=== PATIENT | male | born 1995 | race African-American/Black ===

== ENCOUNTER 2017-04-17 13:42 | Emergency (ER) | payer SELFPAY ==
[2017-04-17] MEDS ORDERED: LIDOCAINE 4%/TETRACAINE 0.5%/EPI 0.18% 5 ML TOPICAL SOLN TOP ONE (14:33)
--- NOTE | 2017-04-17 14:33 | ER Document Report ---
HPI - HPI Patient complains to provider of: fall, lip laceration Pain Level: 4 Context: patient is a 21 year old male who presents to the ED complaining of lip lac after fall today at home. he was in the bathroom and slipped hitting his chin on the toilet. but landing on his right shoulder. his CC today is his chin laceration. no LOc, h/a, dizzyness, n/v. mild shoulder pain but without motor or sensory dysfunction pack a day smoker Past Medical History - Social History Smoking Status: Current Every Day Smoker Chew tobacco use (# tins/day): No Frequency of alcohol use: Rare Family History: Reviewed & Not Pertinent Patient has suicidal ideation: No Patient has homicidal ideation: No Renal/ Medical History: Denies: Hx Peritoneal Dialysis Surgical Hx: Negative - Immunizations Hx Diphtheria, Pertussis, Tetanus Vaccination: Yes Vertical Provider Document - CONSTITUTIONAL Agree With Documented VS: Yes Exam Limitations: No Limitations General Appearance: WD/WN, No Apparent Distress - INFECTION CONTROL TRAVEL OUTSIDE OF THE [place] IN LAST 30 DAYS: No - NECK Neck: Normal Inspection, Other - Full ROM, no spinous process tenderness, no paraspinal muscle tenderness - RESPIRATORY Respiratory: Breath Sounds Normal, No Respiratory Distress, Chest Non-Tender O2 Sat by Pulse Oximetry: 97 - CARDIOVASCULAR Cardiovascular: Regular Rate, Regular Rhythm, No Murmur - BACK Back: Normal Inspection Notes: No evidence of paraspinous muscle tenderness or spinous process tenderness, step offs or deformities - MUSCULOSKELETAL/EXTREMETIES Musculoskeletal/Extremeties: MAEW, FROM, Non-Tender, No Edema. negative: Eccymosis - NEURO Level of Consciousness: Awake, Alert, Appropriate Motor/Sensory: No Motor Deficit, No Sensory Deficit - DERM Integumentary: Laceration - 1 cm lacerationleft lateral lower lip with minimal involment into the lip border. bleeding controlled Course - Re-evaluation Re-evalutation: 04/17/17 16:45 Is a 21-year-old male who suffered from a mechanical fall earlier today. Laceration was closed with 2 interrupted 6-0 nylon sutures after wound was cleaned. Otherwise patient discomfort in the shoulder is not with any concern for fracture dislocation with full range of motion is intact motor and sensory function. Will discharge patient home with instructions to follow-up in 5 days with primary care - Vital Signs Vital signs: Temp Pulse Resp BP Pulse Ox 98.4 F 86 18 143/81 H 97 04/17/17 14:00 04/17/17 14:00 04/17/17 14:00 04/17/17 14:00 04/17/17 14:00 Procedures - Laceration/Wound Repair Face Wound length (cm): 1 Wound's Depth, Shape: Linear Laceration pre-procedure: Sterile PPE donned, Chloraprep applied, Sterile drapes applied Anesthetic type: Other - LET Wound explored: Clean, No foreign body removed Irrigated w/ Saline (mLs): 15 Wound Debrided: Minimal Wound Repaired With: Sutures Suture Size/Type: 6:0, Nylon Number of Sutures: 2 Layer Closure?: No Post-procedure wound care: Sterile dressing applied Post-procedure NV exam normal: Yes Complications: No Discharge - Discharge Clinical Impression: Laceration, Fall Condition: Good Disposition: HOME, SELF-CARE Instructions: Laceration Care ([facility]), Soap Cleansing ([facility]), Antibiotic Ointment Protection ([facility]) Additional Instructions: Please follow up with your primary care or urgent care (see attached card) for removal of your stitches in 3-5 days. Prescriptions: Ibuprofen [Motrin 800 mg Tablet] 800 mg PO Q8H PRN #30 tab PRN Reason: Forms: Elevated Blood Pressure, Return to Work
[2017-04-17 15:32] VITALS: BP 129/70
[2017-04-17] MEDS ORDERED: IBUPROFEN 800 MG TABLET PO ONE (15:35)
== END 2017-04-17 15:40 | disposition home or self-care (01) ==
LOC: ER 13:42
PROC: 0HQ1XZZ Repair Face Skin, External Approach (ICD-10-PCS; principal; 2017-04-17)
DX: S01.511A Laceration without foreign body of lip, initial encounter (principal); M25.511 Pain in right shoulder; W19.XXXA Unspecified fall, initial encounter; F17.200 Nicotine dependence, unspecified, uncomplicated
CPT/HCPCS: 99283; 12011; J3490

== ENCOUNTER 2017-09-07 12:22 | Emergency (ER) | payer SELFPAY ==
[2017-09-07] MEDS ORDERED: ONDANSETRON 4 MG TAB.RAPDIS SL ONE (12:55)
--- NOTE | 2017-09-07 12:56 | ER Document Report ---
ED Medical Screen (RME) - General Chief Complaint: Abdominal Pain Stated Complaint: STOMACH PAIN Time Seen by Provider: 09/07/17 12:34 Mode of Arrival: Ambulatory Information source: Patient TRAVEL OUTSIDE OF THE [place] IN LAST 30 DAYS: No - HPI Patient complains to provider of: Abdominal pain with nausea and vomiting Notes: 09/07/17 12:55 Patient is a 21-year-old male presenting to the emergency room today complaining of abdominal pain that started 2 weeks ago and is just above the umbilicus, with nausea and vomiting that started yesterday, he denies any sick contacts, no fevers, no urinary symptoms - Related Data Allergies/Adverse Reactions: No Known Allergies Allergy (Verified 09/07/17 12:26) Past Medical History Renal/ Medical History: Denies: Hx Peritoneal Dialysis - Immunizations Hx Diphtheria, Pertussis, Tetanus Vaccination: Yes Physical Exam - Vital signs Vitals: Temp Pulse Resp BP Pulse Ox 97.9 F 60 16 129/78 H 98 09/07/17 12:26 09/07/17 12:26 09/07/17 12:26 09/07/17 12:26 09/07/17 12:26 Course - Vital Signs Vital signs: Temp Pulse Resp BP Pulse Ox 97.9 F 60 16 129/78 H 98 09/07/17 12:26 09/07/17 12:26 09/07/17 12:26 09/07/17 12:26 09/07/17 12:26
[2017-09-07 13:52] LABS: ABSOLUTE EOSINOPHILS # (AUTO) 0.1 10^3/uL (0.0-0.6); ABSOLUTE LYMPHOCYTES (AUTO) 1.1 10^3/uL (0.5-4.7); ABSOLUTE MONOCYTES (AUTO) 0.3 10^3/uL (0.1-1.4); ABSOLUTE NEUT (AUTO) 3.1 10^3/uL (1.7-8.2); BASOPHILS % (AUTO) 0.8 % (0-2); EOSINOPHILS % (AUTO) 2.4 % (0-6); HEMATOCRIT 47.2 % (37.9-51.0); HEMOGLOBIN 15.6 g/dL (13.5-17.0); HGB HCT DIFFERENCE -0.4; LYMPHOCYTES % (AUTO) 23.5 % (13-45); MEAN CORPUSCULAR HEMOGLOBIN 27.4 pg (27.0-33.4); MEAN CORPUSCULAR HGB CONC 33.1 g/dL (32.0-36.0); MEAN CORPUSCULAR VOLUME 83 fl (80-97); MONOCYTES % (AUTO) 7.3 % (3-13); RED CELL DISTRIBUTION WIDTH 13.9 % (11.5-14.0); WHITE BLOOD COUNT 4.7 10^3/uL (4.0-10.5)
[2017-09-07 13:58] LABS: APPEARANCE,URINE CLEAR; BILIRUBIN,URINE NEGATIVE (NEGATIVE); GLUCOSE, URINE NEGATIVE (NEGATIVE); KETONES,URINE NEGATIVE (NEGATIVE); LEUKOCYTE ESTERASE,URINE NEGATIVE (NEGATIVE); NITRITE,URINE NEGATIVE (NEGATIVE); PROTEIN,URINE NEGATIVE (NEGATIVE); URINE SPECIFIC GRAVITY 1.021; UROBILINOGEN,URINE NEGATIVE mg/dL (<2.0)
[2017-09-07 14:09] LABS: ALANINE AMINOTRANSFERASE 34 U/L (21-72); ALBUMIN 4.7 g/dL (3.5-5.0); ALKALINE PHOSPHATASE 39 U/L (38-126); ANION GAP 9 (5-19); ASPARTATE AMINO TRANSFERASE 28 U/L (17-59); BILIRUBIN,DIRECT 0.4 mg/dL (0.0-0.4); BILIRUBIN,TOTAL 0.6 mg/dL (0.2-1.3); BLOOD UREA NITROGEN 16 mg/dL (7-20); CALCIUM 10.5 mg/dL (8.4-10.2); CARBON DIOXIDE 33 mmol/L (22-30); CHLORIDE 103 mmol/L (98-107); CREATININE RESULT 0.88 mg/dL (0.52-1.25); GLUCOSE 84 mg/dL (75-110); LIPASE 62.6 U/L (23-300); SODIUM 145.2 mmol/L (137-145); TOTAL PROTEIN 7.2 g/dL (6.3-8.2)
[2017-09-07 15:17] VITALS: BP 114/90
--- NOTE | 2017-09-07 15:17 | ER Document Report ---
ED GI/ - General Chief Complaint: Abdominal Pain Stated Complaint: STOMACH PAIN Time Seen by Provider: 09/07/17 12:34 Mode of Arrival: Ambulatory Information source: Patient TRAVEL OUTSIDE OF THE [place] IN LAST 30 DAYS: No - HPI Patient complains to provider of: Abdominal pain, Vomiting Timing/Duration: Gradual Quality of pain: Achy Pain Level: 2 Location: Epigastric Associated symptoms: Nausea, Vomiting Exacerbated by: Food Relieved by: Denies Notes: 09/07/17 15:15 09/07/17 12:55 Patient is a 21-year-old male presenting to the emergency room today complaining of abdominal pain that started 2 weeks ago and is just above the umbilicus, with nausea and vomiting that started yesterday, he denies any sick contacts, no fevers, no urinary symptoms - Related Data Allergies/Adverse Reactions: No Known Allergies Allergy (Verified 09/07/17 12:26) Past Medical History - General Information source: Patient - Social History Smoking Status: Current Every Day Smoker Frequency of alcohol use: Occasional Drug Abuse: None Family History: Reviewed & Not Pertinent Renal/ Medical History: Denies: Hx Peritoneal Dialysis - Immunizations Hx Diphtheria, Pertussis, Tetanus Vaccination: Yes Review of Systems - Review of Systems Constitutional: No symptoms reported EENT: No symptoms reported Cardiovascular: No symptoms reported Respiratory: No symptoms reported Gastrointestinal: See HPI Genitourinary: No symptoms reported Male Genitourinary: No symptoms reported Musculoskeletal: No symptoms reported Skin: No symptoms reported Hematologic/Lymphatic: No symptoms reported Neurological/Psychological: No symptoms reported -: Yes All other systems reviewed and negative Physical Exam - Vital signs Vitals: Temp Pulse Resp BP Pulse Ox 97.9 F 60 16 129/78 H 98 09/07/17 12:26 09/07/17 12:26 09/07/17 12:26 09/07/17 12:26 09/07/17 12:26 Interpretation: Normal - General General appearance: Appears well, Alert - HEENT Head: Normocephalic, Atraumatic Eyes: Normal Pupils: PERRL - Respiratory Respiratory status: No respiratory distress Chest status: Nontender Breath sounds: Normal Chest palpation: Normal - Cardiovascular Rhythm: Regular Heart sounds: Normal auscultation Murmur: No - Abdominal Inspection: Normal Distension: No distension Bowel sounds: Normal Tenderness: Tender - Epigastric region Organomegaly: No organomegaly - Back Back: Normal, Nontender - Extremities General upper extremity: Normal inspection, Nontender, Normal color, Normal ROM , Normal temperature General lower extremity: Normal inspection, Nontender, Normal color, Normal ROM , Normal temperature, Normal weight bearing. No: Rose Mary's sign - Neurological Neuro grossly intact: Yes Cognition: Normal Orientation: AAOx4 Baldwin Coma Scale Eye Opening: Spontaneous Jeimy Coma Scale Verbal: Oriented Baldwin Coma Scale Motor: Obeys Commands Jeimy Coma Scale Total: 15 Speech: Normal Motor strength normal: LUE, RUE, LLE, RLE Sensory: Normal - Psychological Associated symptoms: Normal affect, Normal mood - Skin Skin Temperature: Warm Skin Moisture: Dry Skin Color: Normal Course - Re-evaluation Re-evalutation: 09/07/17 15:15 Patient tolerating p.o. intake, labs were discussed with patient at bedside which are unremarkable, patient will be discharged with prescription for Pepcid and Zofran and advised to follow-up with a primary care provider or return if symptoms worsen, patient acknowledges understanding and agreement with this plan - Vital Signs Vital signs: Temp Pulse Resp BP Pulse Ox 97.9 F 60 16 129/78 H 98 09/07/17 12:26 09/07/17 12:26 09/07/17 12:26 09/07/17 12:26 09/07/17 12:26 - Laboratory Result Diagrams: 09/07/17 13:26 09/07/17 13:26 Laboratory results interpreted by me: 09/07/17 09/07/17 13:26 13:26 RBC 5.70 H Plt Count 127 L Sodium 145.2 H Carbon Dioxide 33 H Calcium 10.5 H Discharge - Discharge Clinical Impression: Epigastric abdominal pain Nausea and vomiting Qualifiers: Vomiting type: unspecified Vomiting Intractability: non-intractable Qualified Code(s): R11.2 - Nausea with vomiting, unspecified Condition: Stable Disposition: HOME, SELF-CARE Instructions: Abdominal Pain ([facility]), Antinausea Medication ([facility]), Vomiting ([facility]) , Viral Syndrome ([facility]) Additional Instructions: Follow up with your primary care provider in one to 2 days. Return to the emergency room immediately if symptoms worsen or any additional concerns. Prescriptions: Famotidine [Pepcid 20 mg Tablet] 20 mg PO BID #60 tablet Ondansetron [Zofran Odt 4 mg Tablet] 1 - 2 tab PO Q4H #10 tab.rapdis Forms: Return to Work
== END 2017-09-07 15:19 | disposition home or self-care (01) ==
LOC: ER 12:22
DX: R10.13 Epigastric pain (principal); R11.2 Nausea with vomiting, unspecified; F17.200 Nicotine dependence, unspecified, uncomplicated
CPT/HCPCS: 99284; 36415; 83690; 85025; 80053; 81001; S0119